=== PATIENT | male | born 1940 | race African-American/Black ===

== ENCOUNTER 2017-05-24 06:59 | Observation (INO) | payer MEDICARE, OTHER ==
[~2017-05-24] VITALS: Ht 182.9 cm; Wt 79.9 kg
[~2017-05-24 06:59] MED LIST: AMLO10TA80 PO; FEBU40TA PO; FERR-63 PO; FOLI-43 PO; LOSA100T14 PO; MULT-1146 PO; SIMV10TA6 PO
[2017-05-24 08:16] LABS: MEAN CORPUSCULAR HEMOGLOBIN 28.4 pg (28.0-32.0); MEAN CORPUSCULAR VOLUME 82.7 fL (80.0-94.0); MEAN PLATELET VOLUME 6.1 fl (7.4-10.4); PLATELET 594 x1000/uL (130-400); RED BLOOD CELL COUNT 2.34 mill/uL (4.7-6.1); RED CELL DISTRIBUTION WIDTH 15.8 % (11.6-14.6)
[2017-05-24 08:18] LABS: HEMATOCRIT. 19.3 % (42.0-52.0); HEMOGLOBIN. 6.6 g/dL (14.0-18.0)
[2017-05-24] MEDS ORDERED: SODIUM CHLORIDE 0.9% 1,000 ML IV SCH ×2 (09:00→10:18)
[2017-05-24 09:07] LABS: PLATELET ESTIMATE INCREASED
[2017-05-24] MEDS ORDERED: MIDAZOLAM HCL 2 MG/2 ML VIAL ONE (09:30)
[2017-05-24] MEDS ORDERED: FENTANYL CITRATE/PF 50MCG/ML 2ML VIAL ONE (09:32)
[2017-05-24] MEDS ORDERED: PROPOFOL 200MG/20ML VIAL IV ONE (09:34)
[2017-05-24] MEDS ORDERED: ONDANSETRON HCL 4MG/2ML VIAL IV PRN ×2 (10:30→13:45)
[2017-05-24] MEDS ORDERED: CLONIDINE 0.1MG TABLET PO PRN (13:45)
[2017-05-24] MEDS: LOSARTAN POTASSIUM 100 MG TABLET PO SCH (13:45)
[2017-05-24] MEDS ORDERED: IPRATROPIUM/ALBUTEROL 0.5-3(2.5)MG/3ML NEB INH PRN (13:45)
[2017-05-24] MEDS: AMLODIPINE 10MG TABLET PO SCH (13:45)
[2017-05-24] MEDS: FERROUS SULFATE 325MG TABLET PO SCH ×2 (14:20→16:37)
[2017-05-24] MEDS: FOLIC ACID 1MG TABLET PO SCH (14:20)
[2017-05-25 07:04] LABS: T4 FREE 1.09 ng/dL (0.76-1.46)
[2017-05-25 07:34] LABS: HEMATOCRIT. 25.4 % (42.0-52.0); HEMOGLOBIN. 8.6 g/dL (14.0-18.0); MEAN CORPUSCULAR HEMOGLOBIN 28.3 pg (28.0-32.0); MEAN CORPUSCULAR VOLUME 83.9 fL (80.0-94.0); MEAN PLATELET VOLUME 6.8 fl (7.4-10.4); PLATELET 609 x1000/uL (130-400); RED BLOOD CELL COUNT 3.03 mill/uL (4.7-6.1); RED CELL DISTRIBUTION WIDTH 15.5 % (11.6-14.6)
[2017-05-25] MEDS: LOSARTAN POTASSIUM 100 MG TABLET PO SCH (08:53)
[2017-05-25] MEDS: FERROUS SULFATE 325MG TABLET PO SCH (08:53)
[2017-05-25] MEDS: FOLIC ACID 1MG TABLET PO SCH (08:53)
[2017-05-25] MEDS: AMLODIPINE 10MG TABLET PO SCH (08:54)
[2017-05-25 12:08] LABS: PLATELET ESTIMATE INCREASED
[2017-05-25 13:17] VITALS: BP 126/74
[2017-07-09] MEDS ORDERED: ASPI-1160 PO (12:17)
== END 2017-05-25 14:00 | disposition home or self-care (01) ==
LOC: OR 06:59 → INTOOBSV 07:00 → 5WST 07:00
PROVIDERS: ADMIT Internal Medicine; ATTEND Internal Medicine
DX: D64.9 Anemia, unspecified (principal); C79.00 Secondary malignant neoplasm of unspecified kidney and renal pelvis; I12.9 Hypertensive chronic kidney disease with stage 1 through stage 4 chronic kidney disease, or unspecified chronic kidney disease; D47.3 Essential (hemorrhagic) thrombocythemia; N18.9 Chronic kidney disease, unspecified; Z85.46 Personal history of malignant neoplasm of prostate; Z86.73 Personal history of transient ischemic attack (TIA), and cerebral infarction without residual deficits; Z90.5 Acquired absence of kidney
CPT/HCPCS: 36415; 36430; 38221; 80048; 84439; 84443; 85025; 85060; 85097; 86850; 86900; 86901; 86920; 88305; 88311; 88313; G0378; J2250; J3010; J7030; J7040; P9016; J2704

== ENCOUNTER 2017-06-08 13:37 | Observation (INO) | payer MEDICARE, OTHER ==
[~2017-06-08] VITALS: Ht 182.9 cm; Wt 79.4 kg
[2017-06-08 10:00] VITALS: BP 127/78
[2017-06-08 15:43] LABS: MEAN CORPUSCULAR HEMOGLOBIN 28.9 pg (28.0-32.0); MEAN CORPUSCULAR VOLUME 83.8 fL (80.0-94.0); MEAN PLATELET VOLUME 6.6 fl (7.4-10.4); PLATELET 564 x1000/uL (130-400); RED BLOOD CELL COUNT 2.44 mill/uL (4.7-6.1); RED CELL DISTRIBUTION WIDTH 16.5 % (11.6-14.6)
[2017-06-08 15:51] LABS: CARBON DIOXIDE 22 mEq/L (21-32); CHLORIDE 111 mEq/L (98-107)
[2017-06-08 15:52] LABS: HEMATOCRIT. 20.4 % (42.0-52.0)
[2017-06-08 17:04] LABS: ATYPICAL LYMPHOCYTES 1
[2017-06-08 17:05] LABS: PLATELET ESTIMATE INCREASED
[2017-06-08 22:00] VITALS: BP 127/78
[2017-06-09] VITALS: BP 125/77
[2017-06-09] MEDS ORDERED: ACETAMINOPHEN 325MG TABLET PO PRN
[2017-06-09 04:00] VITALS: BP 129/73
[2017-06-09 04:44] VITALS: BP 114/81
[2017-06-09 04:59] VITALS: BP 109/78
[2017-06-09 05:59] VITALS: BP 115/59
[2017-06-09 08:00] VITALS: BP 125/76
[2017-06-09] MEDS ORDERED: PANTOPRAZOLE SODIUM 40 MG/VIAL IV SCH (09:00)
[2017-06-09 10:25] LABS: HEMATOCRIT. 30.1 % (42.0-52.0); MEAN CORPUSCULAR VOLUME 83.7 fL (80.0-94.0); MEAN PLATELET VOLUME 6.3 fl (7.4-10.4); PLATELET 546 x1000/uL (130-400); RED BLOOD CELL COUNT 3.59 mill/uL (4.7-6.1); RED CELL DISTRIBUTION WIDTH 15.8 % (11.6-14.6)
[2017-06-09 10:29] LABS: HEMOGLOBIN. 10.4 g/dL (14.0-18.0)
[2017-06-09 13:45] LABS: PLATELET ESTIMATE INCREASED
== END 2017-06-09 10:50 | disposition left against medical advice (07) ==
LOC: ER 15:35 → INTOOBSV 17:15 → 6EST 17:15 → EDBEDREQ 17:18 → ENRESERV 19:23
PROVIDERS: ADMIT Internal Medicine; ATTEND Internal Medicine
DX: D64.9 Anemia, unspecified (principal)
CPT/HCPCS: 36415; 36430; 80048; 80053; 85025; 86850; 86900; 86901; 86920; 96374; C9113; G0378; J7040; J7050; P9016

== ENCOUNTER 2017-06-27 09:56 | Observation (INO) | payer MEDICARE, OTHER ==
[2017-06-27] VITALS (9 sets, daily range): BP systolic 110–119; BP diastolic 54–81
[~2017-06-27] VITALS: Ht 188 cm; Wt 79.8 kg
[2017-06-27 11:19] LABS: INR 1.1; PROTHROMBIN TIME 11.5 sec
[2017-06-27 11:22] LABS: MEAN CORPUSCULAR HEMOGLOBIN 28.4 pg (28.0-32.0); MEAN CORPUSCULAR VOLUME 85.7 fL (80.0-94.0); MEAN PLATELET VOLUME 6.5 fl (7.4-10.4); PLATELET 529 x1000/uL (130-400); RED BLOOD CELL COUNT 1.93 mill/uL (4.7-6.1)
[2017-06-27 11:26] LABS: HEMATOCRIT. 16.6 % (42.0-52.0); HEMOGLOBIN. 5.5 g/dL (14.0-18.0)
[2017-06-27 11:27] LABS: CARBON DIOXIDE 21 mEq/L (21-32); CHLORIDE 112 mEq/L (98-107)
[2017-06-27 12:02] LABS: CLARITY URINE CLEAR (CLEAR); COLOR URINE YELLOW (YELLOW); GLUCOSE URINE NEGATIVE (NEGATIVE); KETONES URINE NEGATIVE (NEGATIVE); LEUKOCYTE ESTERASE URINE NEGATIVE (NEGATIVE); NITRITE URINE NEGATIVE (NEGATIVE); OCCULT BLOOD URINE NEGATIVE (NEGATIVE); PH URINE 6.5 (4.5-8.0); PROTEIN URINE NEGATIVE (NEGATIVE); SPECIFIC GRAVITY URINE 1.014 (1.005-1.030)
[2017-06-27 14:44] LABS: PLATELET ESTIMATE INCREASED
[2017-06-27] MEDS ORDERED: HYDROCODONE/ACETAMINOPHEN 5/325MG TABLET PO PRN (16:00)
[2017-06-27] MEDS ORDERED: ONDANSETRON HCL 4MG/2ML VIAL IV PRN (16:00)
[2017-06-27] MEDS ORDERED: ACETAMINOPHEN 325MG TABLET PO PRN (16:00)
[2017-06-27] MEDS ORDERED: CLONIDINE 0.1MG TABLET PO PRN (16:00)
[2017-06-27] MEDS ORDERED: IPRATROPIUM/ALBUTEROL 0.5-3(2.5)MG/3ML NEB INH PRN (16:00)
[2017-06-27] MEDS ORDERED: DIATR MEGLU/DIATRIZOATE SOLN 30ML PO NR (19:45)
[2017-06-27] MEDS ORDERED: HYDROXYUREA 500MG CAPSULE PO NR (20:00)
[2017-06-27 20:23] LABS: TOTAL IRON BINDING CAPACITY 250 ug/dL (250-450)
[2017-06-27 23:28] LABS: CREATINE KINASE 69 IU/L (39-308); TROPONIN I < 0.02 ng/mL (0.00-0.04)
[2017-06-28 04:55] VITALS: BP 134/68
[2017-06-28 07:12] LABS: HEMATOCRIT. 22.8 % (42.0-52.0); HEMOGLOBIN. 7.9 g/dL (14.0-18.0); MEAN CORPUSCULAR HEMOGLOBIN 29.6 pg (28.0-32.0); MEAN CORPUSCULAR VOLUME 85.1 fL (80.0-94.0); MEAN PLATELET VOLUME 6.7 fl (7.4-10.4); PLATELET 498 x1000/uL (130-400); RED BLOOD CELL COUNT 2.68 mill/uL (4.7-6.1); RED CELL DISTRIBUTION WIDTH 15.1 % (11.6-14.6)
[2017-06-28 07:30] LABS: CARBON DIOXIDE 19 mEq/L (21-32); CHLORIDE 112 mEq/L (98-107); T4 FREE 1.04 ng/dL (0.76-1.46); TROPONIN I < 0.02 ng/mL (0.00-0.04)
[2017-06-28 07:34] LABS: CREATINE KINASE 65 IU/L (39-308); HDL CHOLESTEROL 21 mg/dL (40-59); LDL CHOLESTEROL 39 mg/dL (5-100)
[2017-06-28 08:00] VITALS: BP 112/69
[2017-06-28] MEDS ORDERED: ASPIRIN 81MG EC TABLET PO SCH (09:00)
[2017-06-28 10:33] LABS: PLATELET ESTIMATE INCREASED
[2017-06-28 12:35] VITALS: BP 118/80
[2017-06-28 13:02] VITALS: BP 105/62
== END 2017-06-28 13:15 | disposition home or self-care (01) ==
LOC: ER 10:47 → INTOOBSV 12:37 → 6WST 12:37 → EDBEDREQ 12:40 → ENRESERV 12:51
PROVIDERS: ADMIT Internal Medicine; ATTEND Internal Medicine
DX: D64.9 Anemia, unspecified (principal); D69.3 Immune thrombocytopenic purpura; D47.1 Chronic myeloproliferative disease; D47.3 Essential (hemorrhagic) thrombocythemia; N18.9 Chronic kidney disease, unspecified; I12.9 Hypertensive chronic kidney disease with stage 1 through stage 4 chronic kidney disease, or unspecified chronic kidney disease; R53.1 Weakness; R06.09 Other forms of dyspnea; D72.829 Elevated white blood cell count, unspecified; E78.00 Pure hypercholesterolemia, unspecified; Z86.73 Personal history of transient ischemic attack (TIA), and cerebral infarction without residual deficits
CPT/HCPCS: 36415; 71250; 74176; 80053; 80061; 81003; 82550; 82728; 83540; 83550; 84439; 84443; 84484; 85025; 85044; 85610; 86850; 86900; 86901; 86920; 87186; 93005; 99285; G0378; J7040; P9016; Q9963; A4315

== ENCOUNTER 2017-07-20 16:51 | Observation (INO) | payer MEDICARE, OTHER ==
[~2017-07-20] VITALS: Ht 182.9 cm; Wt 77.1 kg
[~2017-07-20 16:51] MED LIST changes: +ASPI-1160 PO
[2017-07-20 19:32] LABS: MEAN CORPUSCULAR HEMOGLOBIN 29.6 pg (28.0-32.0); MEAN CORPUSCULAR VOLUME 86.7 fL (80.0-94.0); MEAN PLATELET VOLUME 6.3 fl (7.4-10.4); PLATELET 313 x1000/uL (130-400); RED BLOOD CELL COUNT 1.79 mill/uL (4.7-6.1); RED CELL DISTRIBUTION WIDTH 14.9 % (11.6-14.6)
[2017-07-20 19:33] LABS: CHLORIDE 112 mEq/L (98-107)
[2017-07-20 19:35] LABS: INR 1.1; PARTIAL THROMBOPLASTIN TIME 29.6 sec (23.4-31.0); PROTHROMBIN TIME 11.5 sec (9.4-11.6)
[2017-07-20 19:36] LABS: HEMATOCRIT. 15.5 % (42.0-52.0); HEMOGLOBIN. 5.3 g/dL (14.0-18.0)
[2017-07-20 19:41] LABS: CARBON DIOXIDE 20 mEq/L (21-32)
[2017-07-20 19:44] LABS: TROPONIN I < 0.02 ng/mL (0.00-0.04)
[2017-07-20 20:11] LABS: ATYPICAL LYMPHOCYTES 3; PLATELET ESTIMATE NORMAL
[2017-07-20 22:30] VITALS: BP 121/57
[2017-07-20 22:58] VITALS: BP 121/57
[2017-07-21] VITALS (11 sets, daily range): BP systolic 103–136; BP diastolic 51–73
[2017-07-21 06:26] LABS: HEMATOCRIT. 22.2 % (42.0-52.0); HEMOGLOBIN. 7.5 g/dL (14.0-18.0); MEAN CORPUSCULAR HEMOGLOBIN 29.9 pg (28.0-32.0); MEAN CORPUSCULAR VOLUME 88.5 fL (80.0-94.0); MEAN PLATELET VOLUME 6.4 fl (7.4-10.4); PLATELET 305 x1000/uL (130-400); RED BLOOD CELL COUNT 2.51 mill/uL (4.7-6.1)
[2017-07-21 08:20] LABS: NUCLEATED RED BLOOD CELLS 1 /100 WBC
[2017-07-21 08:21] LABS: PLATELET ESTIMATE NORMAL
[2017-07-21] MEDS ORDERED: FERROUS SULFATE 325MG TABLET PO SCH (09:00)
[2017-07-21] MEDS ORDERED: ASPIRIN 81MG TABLET PO SCH (09:00)
[2017-07-21] MEDS ORDERED: FOLIC ACID 1MG TABLET PO SCH (09:00)
[2017-07-21] MEDS ORDERED: MEDICATION NOT ON FORMULARY EA (Simvastatin 10 MG) PO SCH (09:00)
[2017-07-21] MEDS ORDERED: FEBUXOSTAT PO SCH (09:00)
[2017-07-21] MEDS ORDERED: LOSARTAN POTASSIUM 100 MG TABLET PO SCH (09:00)
[2017-07-21] MEDS ORDERED: AMLODIPINE 10MG TABLET PO SCH (09:00)
[2017-07-21] MEDS ORDERED: ATORVASTATIN CALCIUM 10MG TABLET PO SCH (21:00)
== END 2017-07-21 18:15 | disposition home or self-care (01) ==
LOC: ER 20:15 → INTOOBSV 20:16 → 5WST 20:16 → EDBEDREQ 20:28 → ER 20:30 → ENRESERV 20:48 → ER 21:05
PROVIDERS: ADMIT Internal Medicine; ATTEND Internal Medicine
DX: C94.6 Myelodysplastic disease, not elsewhere classified (principal); I12.9 Hypertensive chronic kidney disease with stage 1 through stage 4 chronic kidney disease, or unspecified chronic kidney disease; N18.9 Chronic kidney disease, unspecified; D64.9 Anemia, unspecified; E78.00 Pure hypercholesterolemia, unspecified; Z86.73 Personal history of transient ischemic attack (TIA), and cerebral infarction without residual deficits
CPT/HCPCS: 36415; 36430; 71010; 80053; 83690; 84484; 85025; 85044; 85610; 85730; 86850; 86900; 86901; 86920; 93005; 99285; G0378; J7040; P9016

== ENCOUNTER 2017-07-25 13:22 | Observation (INO) | payer MEDICARE, OTHER ==
[~2017-07-25] VITALS: Ht 182.9 cm; Wt 78.0 kg
[2017-07-25] VITALS (9 sets, daily range): BP systolic 90–116; BP diastolic 39–60
[2017-07-25 14:55] LABS: MEAN CORPUSCULAR HEMOGLOBIN 29.9 pg (28.0-32.0); MEAN CORPUSCULAR VOLUME 88.8 fL (80.0-94.0); MEAN PLATELET VOLUME 6.5 fl (7.4-10.4); PLATELET 319 x1000/uL (130-400); RED BLOOD CELL COUNT 2.29 mill/uL (4.7-6.1); RED CELL DISTRIBUTION WIDTH 15.1 % (11.6-14.6)
[2017-07-25 15:00] LABS: INR 1.1
[2017-07-25 15:06] LABS: CARBON DIOXIDE 21 mEq/L (21-32); CHLORIDE 110 mEq/L (98-107)
[2017-07-25 15:08] LABS: HEMATOCRIT. 20.3 % (42.0-52.0); HEMOGLOBIN. 6.8 g/dL (14.0-18.0)
[2017-07-25] MEDS ORDERED: ONDANSETRON HCL 4MG/2ML VIAL IV PRN (16:00)
[2017-07-25] MEDS ORDERED: IPRATROPIUM/ALBUTEROL 0.5-3(2.5)MG/3ML NEB INH PRN (16:00)
[2017-07-25] MEDS ORDERED: HYDROCODONE/ACETAMINOPHEN 5/325MG TABLET PO PRN (16:00)
[2017-07-25] MEDS ORDERED: ACETAMINOPHEN 325MG TABLET PO PRN (16:00)
[2017-07-25] MEDS ORDERED: CLONIDINE 0.1MG TABLET PO PRN (16:00)
[2017-07-25 17:08] LABS: NUCLEATED RED BLOOD CELLS 1 /100 WBC; PLATELET ESTIMATE NORMAL
[2017-07-25] MEDS ORDERED: HYDROXYUREA PO (18:52)
[2017-07-25] MEDS ORDERED: ATORVASTATIN CALCIUM 10MG TABLET PO SCH (21:00)
[2017-07-25 22:01] LABS: CREATINE KINASE 57 IU/L (39-308); TROPONIN I < 0.02 ng/mL (0.00-0.04)
[2017-07-26 00:10] VITALS: BP 101/62
[2017-07-26 01:04] VITALS: BP 106/63
[2017-07-26 04:00] VITALS: BP 100/50
[2017-07-26 06:46] LABS: HEMATOCRIT. 23.2 % (42.0-52.0); HEMOGLOBIN. 7.9 g/dL (14.0-18.0); MEAN CORPUSCULAR HEMOGLOBIN 29.5 pg (28.0-32.0); MEAN CORPUSCULAR VOLUME 86.9 fL (80.0-94.0); MEAN PLATELET VOLUME 6.7 fl (7.4-10.4); PLATELET 271 x1000/uL (130-400); RED BLOOD CELL COUNT 2.67 mill/uL (4.7-6.1); RED CELL DISTRIBUTION WIDTH 14.7 % (11.6-14.6)
[2017-07-26 07:02] LABS: LDL CHOLESTEROL 29 mg/dL (5-100)
[2017-07-26 07:11] LABS: CREATINE KINASE 49 IU/L (39-308); HDL CHOLESTEROL 25 mg/dL (40-59); T4 FREE 1.15 ng/dL (0.76-1.46); TROPONIN I < 0.02 ng/mL (0.00-0.04)
[2017-07-26 08:00] VITALS: BP 93/42
[2017-07-26] MEDS ORDERED: FERROUS SULFATE 325MG TABLET PO SCH (08:10)
[2017-07-26] MEDS ORDERED: LOSARTAN POTASSIUM 100 MG TABLET PO SCH (09:00)
[2017-07-26] MEDS ORDERED: AMLODIPINE 10MG TABLET PO SCH (09:00)
[2017-07-26] MEDS ORDERED: FEBUXOSTAT PO SCH (09:00)
[2017-07-26] MEDS ORDERED: HYDROXYUREA 500MG CAPSULE PO SCH (09:00)
[2017-07-26] MEDS ORDERED: ASPIRIN 81MG TABLET PO SCH (09:00)
[2017-07-26] MEDS ORDERED: FOLIC ACID 1MG TABLET PO SCH (09:00)
[2017-07-26] MEDS ORDERED: MEDICATION NOT ON FORMULARY EA (Multivitamin (Multi Vitamin Daily) 1 TAB) PO SCH (09:00)
[2017-07-26] MEDS ORDERED: MULTIVITAMINS,THER W-MINERALS TABLET PO SCH (09:00)
[2017-07-26] MEDS ORDERED: MEDICATION NOT ON FORMULARY EA (Simvastatin 10 MG) PO SCH (09:00)
[2017-07-26] MEDS ORDERED: HYDROXYUREA 500 MG PO SCH (09:00)
[2017-07-26 11:04] VITALS: BP 101/60
[2017-07-26 12:00] VITALS: BP 116/64
[2017-07-26 15:58] LABS: PLATELET ESTIMATE NORMAL
== END 2017-07-26 11:50 | disposition home health service (06) ==
LOC: ER 14:52 → 7WST 16:03 → INTOOBSV 16:03 → EDBEDREQ 16:04 → EDBEDREQTM 16:04 → ENRESERV 17:09
PROVIDERS: ADMIT Internal Medicine; ATTEND Internal Medicine
DX: D64.9 Anemia, unspecified (principal); D47.1 Chronic myeloproliferative disease; D47.3 Essential (hemorrhagic) thrombocythemia; I12.0 Hypertensive chronic kidney disease with stage 5 chronic kidney disease or end stage renal disease; N18.6 End stage renal disease; D57.1 Sickle-cell disease without crisis; E78.00 Pure hypercholesterolemia, unspecified; Z86.73 Personal history of transient ischemic attack (TIA), and cerebral infarction without residual deficits
CPT/HCPCS: 36415; 36430; 71010; 80048; 80053; 80061; 82550; 84439; 84443; 84484; 85025; 85610; 85660; 86850; 86900; 86901; 86920; 93005; 96374; 99285; G0378; J2405; J7050; P9016

== ENCOUNTER 2017-08-03 19:54 | Inpatient (IN) | payer MEDICARE, OTHER ==
[~2017-08-03] VITALS: Ht 182.9 cm; Wt 79.4 kg
[~2017-08-03 19:54] MED LIST changes: +HYDROXYUREA PO
[2017-08-03 21:44] LABS: INR 1.1; PARTIAL THROMBOPLASTIN TIME 28.5 sec (23.4-31.0); PROTHROMBIN TIME 11.5 sec (9.4-11.6)
[2017-08-03 21:48] LABS: MEAN CORPUSCULAR HEMOGLOBIN 29.3 pg (28.0-32.0); MEAN PLATELET VOLUME 6.5 fl (7.4-10.4); PLATELET 320 x1000/uL (130-400); RED BLOOD CELL COUNT 2.13 mill/uL (4.7-6.1); RED CELL DISTRIBUTION WIDTH 14.4 % (11.6-14.6)
[2017-08-03 21:52] LABS: HEMATOCRIT. 18.5 % (42.0-52.0); HEMOGLOBIN. 6.2 g/dL (14.0-18.0)
[2017-08-03] MEDS ORDERED: SODIUM CHLORIDE 0.9% 1000ML BAG (SEPSIS BOLUS) IV ONE (22:15)
[2017-08-03] MEDS ORDERED: LEVOFLOXACIN 750MG PREMIX 150 ML IV ONE (22:15)
[2017-08-03 22:56] LABS: ATYPICAL LYMPHOCYTES 1; PLATELET ESTIMATE NORMAL
[2017-08-03 23:03] LABS: CLARITY URINE CLEAR (CLEAR); COLOR URINE YELLOW (YELLOW); GLUCOSE URINE NEGATIVE (NEGATIVE); KETONES URINE NEGATIVE (NEGATIVE); LEUKOCYTE ESTERASE URINE NEGATIVE (NEGATIVE); NITRITE URINE NEGATIVE (NEGATIVE); OCCULT BLOOD URINE NEGATIVE (NEGATIVE); PH URINE 5.5 (4.5-8.0); PROTEIN URINE NEGATIVE (NEGATIVE); SPECIFIC GRAVITY URINE 1.014 (1.005-1.030); UROBILINOGEN URINE 0.2 E.U./dL (0.2-1.0)
[2017-08-04] VITALS (15 sets, daily range): BP systolic 110–132; BP diastolic 50–66
[2017-08-04] MEDS ORDERED: ACETAMINOPHEN 325MG TABLET PO PRN (01:30)
[2017-08-04] MEDS ORDERED: FERROUS SULFATE 325MG TABLET PO SCH (07:15)
[2017-08-04] MEDS ORDERED: HYDROXYUREA 500MG CAPSULE PO SCH (09:00)
[2017-08-04] MEDS ORDERED: MEDICATION NOT ON FORMULARY EA (Multivitamin (Multi Vitamin Daily) 1 EACH) PO SCH (09:00)
[2017-08-04] MEDS ORDERED: HYDROXYUREA 500 MG PO SCH (09:00)
[2017-08-04] MEDS ORDERED: FEBUXOSTAT 40 MG PO SCH (09:00)
[2017-08-04] MEDS ORDERED: ASPIRIN 81MG TABLET PO SCH (09:00)
[2017-08-04] MEDS ORDERED: LOSARTAN POTASSIUM 100 MG TABLET PO SCH (09:00)
[2017-08-04] MEDS ORDERED: MULTIVITAMINS,THER W-MINERALS TABLET PO SCH (09:00)
[2017-08-04] MEDS ORDERED: FOLIC ACID 1MG TABLET PO SCH (09:00)
[2017-08-04] MEDS ORDERED: AMLODIPINE 10MG TABLET PO SCH (09:00)
[2017-08-04 09:45] LABS: HEMOGLOBIN. 8.5 g/dL (14.0-18.0); MEAN CORPUSCULAR HEMOGLOBIN 29.5 pg (28.0-32.0); MEAN CORPUSCULAR VOLUME 86.6 fL (80.0-94.0); MEAN PLATELET VOLUME 6.5 fl (7.4-10.4); PLATELET 289 x1000/uL (130-400); RED BLOOD CELL COUNT 2.89 mill/uL (4.7-6.1); RED CELL DISTRIBUTION WIDTH 14.3 % (11.6-14.6)
[2017-08-04 13:21] LABS: PLATELET ESTIMATE NORMAL
[2017-08-04] MEDS ORDERED: ATORVASTATIN CALCIUM 10MG TABLET PO SCH (21:00)
[2017-08-04] MEDS ORDERED: MEDICATION NOT ON FORMULARY EA (Simvastatin 10 MG) PO SCH (21:00)
== END 2017-08-04 17:35 | disposition home health service (06) | DRG 842 ==
LOC: ER 19:54 → EDBEDREQSVC 22:17 → EDBEDREQ 22:17 → 5WST 23:03 → EDBEDREQ 23:06 → EDBEDREQTM 23:06 → ENRESERV 23:29
PROVIDERS: ADMIT Internal Medicine; ATTEND Internal Medicine
PROC: 30233N1 Transfusion of Nonautologous Red Blood Cells into Peripheral Vein, Percutaneous Approach (ICD-10-PCS; principal; 2017-08-03)
DX: C94.6 Myelodysplastic disease, not elsewhere classified (principal); D64.9 Anemia, unspecified; I12.9 Hypertensive chronic kidney disease with stage 1 through stage 4 chronic kidney disease, or unspecified chronic kidney disease; N18.9 Chronic kidney disease, unspecified; M10.9 Gout, unspecified; Z79.82 Long term (current) use of aspirin; Z79.899 Other long term (current) drug therapy
CPT/HCPCS: 36415; 71010; 80048; 81003; 83605; 85025; 85610; 85730; 86850; 86900; 86920; 87040; 87086; 93005; 96365; 99285; J1956; J7030; J7040; P9016

== ENCOUNTER 2017-08-17 17:37 | Observation (INO) | payer MEDICARE, OTHER ==
[~2017-08-17] VITALS: Ht 182.9 cm; Wt 78.5 kg
[2017-08-17] MEDS ORDERED: SODIUM CHLORIDE 0.9% 1,000 ML IV ONE (18:34)
[2017-08-17 19:03] LABS: MEAN CORPUSCULAR HEMOGLOBIN 29.1 pg (28.0-32.0); MEAN CORPUSCULAR VOLUME 86.8 fL (80.0-94.0); MEAN PLATELET VOLUME 6.2 fl (7.4-10.4); PLATELET 290 x1000/uL (130-400); RED BLOOD CELL COUNT 2.05 mill/uL (4.7-6.1); RED CELL DISTRIBUTION WIDTH 14.3 % (11.6-14.6)
[2017-08-17 19:05] LABS: CHLORIDE 112 mEq/L (98-107)
[2017-08-17 19:09] LABS: HEMATOCRIT. 17.8 % (42.0-52.0); INR 1.1; PROTHROMBIN TIME 11.4 sec (9.4-11.6)
[2017-08-17 19:11] LABS: CARBON DIOXIDE 22 mEq/L (21-32)
[2017-08-17 19:32] LABS: PLATELET ESTIMATE NORMAL
[2017-08-17] MEDS ORDERED: SODIUM CHLORIDE 0.9% 1,000 ML IV SCH (19:48)
[2017-08-17] MEDS ORDERED: ACETAMINOPHEN 325MG TABLET PO PRN (20:00)
[2017-08-17] MEDS ORDERED: IBUPROFEN 600MG TABLET PO PRN (20:00)
[2017-08-17 22:50] VITALS: BP 128/65
[2017-08-18] VITALS (7 sets, daily range): BP systolic 106–133; BP diastolic 53–65
[2017-08-18] MEDS ORDERED: ACETAMINOPHEN 325MG TABLET PO PRN (07:30)
[2017-08-18] MEDS ORDERED: HYDROCODONE/ACETAMINOPHEN 5/325MG TABLET PO PRN (07:30)
[2017-08-18] MEDS ORDERED: ONDANSETRON HCL 4MG/2ML VIAL IV PRN (07:30)
[2017-08-18] MEDS ORDERED: FERROUS SULFATE 325MG TABLET PO SCH (07:50)
[2017-08-18] MEDS ORDERED: AMLODIPINE 10MG TABLET PO SCH (09:00)
[2017-08-18] MEDS ORDERED: LOSARTAN POTASSIUM 100 MG TABLET PO SCH (09:00)
[2017-08-18] MEDS ORDERED: FOLIC ACID 1MG TABLET PO SCH (09:00)
[2017-08-18 09:09] LABS: HEMATOCRIT. 25.6 % (42.0-52.0); HEMOGLOBIN. 8.5 g/dL (14.0-18.0); MEAN CORPUSCULAR HEMOGLOBIN 29.1 pg (28.0-32.0); MEAN CORPUSCULAR VOLUME 87.6 fL (80.0-94.0); MEAN PLATELET VOLUME 6.4 fl (7.4-10.4); PLATELET 261 x1000/uL (130-400); RED BLOOD CELL COUNT 2.92 mill/uL (4.7-6.1); RED CELL DISTRIBUTION WIDTH 15.9 % (11.6-14.6)
[2017-08-18 22:28] LABS: PLATELET ESTIMATE NORMAL
== END 2017-08-18 13:30 | disposition home health service (06) ==
LOC: ER 17:37 → INTOOBSV 19:49 → 6EST 19:49 → ENRESERV 20:26 → ER 21:19
PROVIDERS: ADMIT Internal Medicine; ATTEND Internal Medicine
DX: D46.9 Myelodysplastic syndrome, unspecified (principal); D64.9 Anemia, unspecified; I10 Essential (primary) hypertension; E78.5 Hyperlipidemia, unspecified
CPT/HCPCS: 36415; 36430; 80053; 85025; 85610; 86850; 86900; 86901; 86920; 93005; 96360; 96361; 99285; G0378; J7030; J7040; P9016

== ENCOUNTER 2017-08-28 18:29 | Observation (INO) | payer MEDICARE, OTHER ==
[~2017-08-28] VITALS: Ht 182.9 cm; Wt 77.1 kg
[2017-08-28 19:40] LABS: MEAN CORPUSCULAR HEMOGLOBIN 29.5 pg (28.0-32.0); MEAN CORPUSCULAR VOLUME 86.8 fL (80.0-94.0); MEAN PLATELET VOLUME 6.7 fl (7.4-10.4); PLATELET 353 x1000/uL (130-400); RED BLOOD CELL COUNT 2.29 mill/uL (4.7-6.1); RED CELL DISTRIBUTION WIDTH 15.7 % (11.6-14.6)
[2017-08-28 19:42] LABS: CHLORIDE 109 mEq/L (98-107); INR 1.1; PARTIAL THROMBOPLASTIN TIME 27.3 sec (23.4-31.0); PROTHROMBIN TIME 11.4 sec (9.4-11.6)
[2017-08-28 19:47] LABS: HEMATOCRIT. 19.9 % (42.0-52.0); HEMOGLOBIN. 6.8 g/dL (14.0-18.0)
[2017-08-28 19:50] LABS: CARBON DIOXIDE 24 mEq/L (21-32); CREATINE KINASE 71 IU/L (39-308); CREATINE KINASE MB FRACTION 0.9 ng/mL (0.5-3.6); TOTAL IRON BINDING CAPACITY 241 ug/dL (250-450); TROPONIN I < 0.02 ng/mL (0.00-0.04)
[2017-08-28 20:22] LABS: PLATELET ESTIMATE NORMAL
[2017-08-28 22:57] LABS: CLARITY URINE CLEAR (CLEAR); COLOR URINE YELLOW (YELLOW); GLUCOSE URINE NEGATIVE (NEGATIVE); KETONES URINE NEGATIVE (NEGATIVE); LEUKOCYTE ESTERASE URINE NEGATIVE (NEGATIVE); NITRITE URINE NEGATIVE (NEGATIVE); OCCULT BLOOD URINE NEGATIVE (NEGATIVE); PH URINE 7.5 (4.5-8.0); PROTEIN URINE 1+ (NEGATIVE); SPECIFIC GRAVITY URINE 1.019 (1.005-1.030); UROBILINOGEN URINE 0.2 E.U./dL (0.2-1.0)
[2017-08-28 23:40] VITALS: BP 124/63
[2017-08-29] VITALS (15 sets, daily range): BP systolic 105–146; BP diastolic 49–68
[2017-08-29] MEDS ORDERED: ACETAMINOPHEN 325MG TABLET PO PRN (00:15)
[2017-08-29] MEDS ORDERED: ONDANSETRON HCL 4MG/2ML VIAL IV PRN (00:15)
[2017-08-29 08:25] LABS: HEMOGLOBIN. 7.2 g/dL (14.0-18.0); MEAN CORPUSCULAR HEMOGLOBIN 29.5 pg (28.0-32.0); MEAN CORPUSCULAR VOLUME 85.9 fL (80.0-94.0); MEAN PLATELET VOLUME 6.6 fl (7.4-10.4); PLATELET 305 x1000/uL (130-400); RED BLOOD CELL COUNT 2.45 mill/uL (4.7-6.1); RED CELL DISTRIBUTION WIDTH 15.4 % (11.6-14.6)
[2017-08-29] MEDS ORDERED: ASPIRIN 81MG TABLET PO SCH (09:00)
[2017-08-29] MEDS ORDERED: FOLIC ACID 1MG TABLET PO SCH (09:00)
[2017-08-29] MEDS ORDERED: HYDROXYUREA 500MG CAPSULE PO SCH (09:00)
[2017-08-29] MEDS ORDERED: LOSARTAN POTASSIUM 100 MG TABLET PO SCH (09:00)
[2017-08-29] MEDS ORDERED: AMLODIPINE 10MG TABLET PO SCH (09:00)
[2017-08-29] MEDS ORDERED: FERROUS SULFATE 325MG TABLET PO SCH (09:00)
[2017-08-29 14:12] LABS: HEMATOCRIT 25.3 % (42.0-52.0); HEMOGLOBIN 8.4 g/dL (14.0-18.0)
[2017-08-29 20:47] LABS: PLATELET ESTIMATE NORMAL
== END 2017-08-29 16:40 | disposition home health service (06) ==
LOC: ER 19:58 → 8WST 20:04 → INTOOBSV 20:04 → EDBEDREQ 20:12 → ENRESERV 21:46
PROVIDERS: ADMIT Internal Medicine; ATTEND Internal Medicine
DX: D46.9 Myelodysplastic syndrome, unspecified (principal); D72.829 Elevated white blood cell count, unspecified; I12.9 Hypertensive chronic kidney disease with stage 1 through stage 4 chronic kidney disease, or unspecified chronic kidney disease; N18.9 Chronic kidney disease, unspecified; J44.9 Chronic obstructive pulmonary disease, unspecified; E78.00 Pure hypercholesterolemia, unspecified; E78.5 Hyperlipidemia, unspecified; Z87.891 Personal history of nicotine dependence
CPT/HCPCS: 36415; 36430; 71010; 80048; 80053; 81001; 82550; 82553; 82962; 83540; 83550; 83690; 83880; 84443; 84484; 85014; 85018; 85025; 85044; 85610; 85730; 86850; 86900; 86901; 86920; 93005; 99285; G0378; J7050; P9016

== ENCOUNTER 2017-09-13 09:43 | Observation (INO) | payer MEDICARE, OTHER ==
[~2017-09-13] VITALS: Ht 182.9 cm; Wt 78.9 kg
[2017-09-13 10:36] LABS: CARBON DIOXIDE 22 mEq/L (21-32); CHLORIDE 109 mEq/L (98-107)
[2017-09-13 10:37] LABS: MEAN CORPUSCULAR HEMOGLOBIN 29.5 pg (28.0-32.0); MEAN CORPUSCULAR VOLUME 86.9 fL (80.0-94.0); MEAN PLATELET VOLUME 6.6 fl (7.4-10.4); PLATELET 364 x1000/uL (130-400); RED BLOOD CELL COUNT 2.14 mill/uL (4.7-6.1); RED CELL DISTRIBUTION WIDTH 15.3 % (11.6-14.6)
[2017-09-13 10:39] LABS: INR 1.1; PROTHROMBIN TIME 11.1 sec (9.4-11.6)
[2017-09-13 10:42] LABS: TROPONIN I < 0.02 ng/mL (0.00-0.04)
[2017-09-13 10:45] LABS: HEMOGLOBIN. 6.3 g/dL (14.0-18.0)
[2017-09-13] MEDS ORDERED: PANTOPRAZOLE 80 MG in SODIUM CHLORIDE 0.9% 100 ML IV SCH (10:45)
[2017-09-13] MEDS ORDERED: PANTOPRAZOLE SODIUM 40 MG/VIAL IV ONE (10:45)
[2017-09-13 10:46] LABS: HEMATOCRIT. 18.6 % (42.0-52.0)
[2017-09-13 11:26] LABS: PLATELET ESTIMATE NORMAL
[2017-09-13] MEDS ORDERED: PANTOPRAZOLE 80 MG in SODIUM CHLORIDE 0.9% 80 ML IV SCH (11:45)
[2017-09-13] MEDS ORDERED: PANTOPRAZOLE SODIUM 40 MG/VIAL IV SCH (11:45)
[2017-09-13 17:42] VITALS: BP 109/55
[2017-09-13 17:43] VITALS: BP 114/56
[2017-09-13 18:00] VITALS: BP 115/56
[2017-09-13 18:15] VITALS: BP 116/48
[2017-09-13] MEDS: HYDROXYUREA 500MG CAPSULE PO SCH (18:42)
[2017-09-13] MEDS: FERROUS SULFATE 325MG TABLET PO SCH (18:43)
[2017-09-13] MEDS: FOLIC ACID 1MG TABLET PO SCH (18:43)
[2017-09-13 19:18] VITALS: BP 108/54
[2017-09-13] MEDS ORDERED: HYDROCODONE/ACETAMINOPHEN 5/325MG TABLET PO PRN (20:00)
[2017-09-13 20:18] VITALS: BP 98/42
[2017-09-13] MEDS ORDERED: ATORVASTATIN CALCIUM 10MG TABLET PO SCH (21:00)
[2017-09-14] VITALS: BP 102/59
[2017-09-14 08:00] VITALS: BP 114/59
[2017-09-14] MEDS ORDERED: AMLODIPINE 10MG TABLET PO SCH (09:00)
[2017-09-14] MEDS ORDERED: FEBUXOSTAT 40 MG PO SCH (09:00)
[2017-09-14] MEDS ORDERED: LOSARTAN POTASSIUM 100 MG TABLET PO SCH (09:00)
[2017-09-14] MEDS: FOLIC ACID 1MG TABLET PO SCH (10:01)
[2017-09-14] MEDS: FERROUS SULFATE 325MG TABLET PO SCH (10:01)
[2017-09-14] MEDS: HYDROXYUREA 500MG CAPSULE PO SCH (10:03)
[2017-09-14 10:53] LABS: HEMATOCRIT. 24.2 % (42.0-52.0); HEMOGLOBIN. 8.4 g/dL (14.0-18.0); MEAN CORPUSCULAR HEMOGLOBIN 29.9 pg (28.0-32.0); MEAN CORPUSCULAR VOLUME 86.4 fL (80.0-94.0); MEAN PLATELET VOLUME 6.5 fl (7.4-10.4); PLATELET 282 x1000/uL (130-400); RED BLOOD CELL COUNT 2.81 mill/uL (4.7-6.1); RED CELL DISTRIBUTION WIDTH 14.6 % (11.6-14.6)
[2017-09-14 12:00] VITALS: BP 111/68
[2017-09-14 12:29] VITALS: BP 114/59
[2017-09-15 06:03] LABS: PLATELET ESTIMATE NORMAL
== END 2017-09-14 12:54 | disposition home or self-care (01) ==
LOC: ER 13:27 → 8WST 13:50 → INTOOBSV 13:50 → EDBEDREQTM 13:53 → EDBEDREQ 13:53 → ENRESERV 14:13
PROVIDERS: ADMIT Internal Medicine; ATTEND Internal Medicine
DX: D64.9 Anemia, unspecified (principal); D72.829 Elevated white blood cell count, unspecified; D46.9 Myelodysplastic syndrome, unspecified; I12.9 Hypertensive chronic kidney disease with stage 1 through stage 4 chronic kidney disease, or unspecified chronic kidney disease; N18.9 Chronic kidney disease, unspecified; E78.00 Pure hypercholesterolemia, unspecified; K92.2 Gastrointestinal hemorrhage, unspecified; M10.9 Gout, unspecified; N32.3 Diverticulum of bladder; N40.0 Benign prostatic hyperplasia without lower urinary tract symptoms
CPT/HCPCS: 36415; 36430; 74176; 80048; 80053; 83880; 84484; 85025; 85610; 86850; 86900; 86901; 86920; 93005; 96365; 96366; 96375; 99291; C9113; G0378; J7030; J7050; P9016; 96374

== ENCOUNTER 2017-09-23 10:20 | Inpatient (IN) | payer MEDICARE, OTHER ==
[2017-09-23] VITALS (8 sets, daily range): BP systolic 102–118; BP diastolic 51–70
[~2017-09-23] VITALS: Ht 182.9 cm; Wt 77.1 kg
[2017-09-23 12:27] LABS: MEAN CORPUSCULAR HEMOGLOBIN 29.5 pg (28.0-32.0); MEAN CORPUSCULAR VOLUME 86.4 fL (80.0-94.0); PLATELET 295 x1000/uL (130-400); RED BLOOD CELL COUNT 2.29 mill/uL (4.7-6.1)
[2017-09-23 12:36] LABS: HEMOGLOBIN. 6.8 g/dL (14.0-18.0)
[2017-09-23 12:37] LABS: HEMATOCRIT. 19.8 % (42.0-52.0); INR 1.1; PARTIAL THROMBOPLASTIN TIME 29.2 sec (23.4-31.0); PROTHROMBIN TIME 11.6 sec (9.4-11.6)
[2017-09-23 12:47] LABS: CARBON DIOXIDE 23 mEq/L (21-32); CHLORIDE 110 mEq/L (98-107)
[2017-09-23 13:37] LABS: PLATELET ESTIMATE NORMAL
[2017-09-23] MEDS ORDERED: ACETAMINOPHEN 325MG TABLET PO PRN (19:45)
[2017-09-23 21:02] LABS: MEAN CORPUSCULAR VOLUME 86.4 fL (80.0-94.0); MEAN PLATELET VOLUME 6.3 fl (7.4-10.4); PLATELET 279 x1000/uL (130-400); RED BLOOD CELL COUNT 2.41 mill/uL (4.7-6.1); RED CELL DISTRIBUTION WIDTH 14.8 % (11.6-14.6)
[2017-09-23 21:26] LABS: HEMATOCRIT. 20.9 % (42.0-52.0)
[2017-09-23 22:00] LABS: PLATELET ESTIMATE NORMAL
[2017-09-23] MEDS ORDERED: HYDROCODONE/ACETAMINOPHEN 5/325MG TABLET PO PRN (23:00)
[2017-09-24 00:25] VITALS: BP 137/74
[2017-09-24] MEDS ORDERED: EPOETIN ALFA 10000UNITS/ML VIAL SUBCUT NR (02:00)
[2017-09-24 04:00] VITALS: BP 121/58
[2017-09-24] MEDS ORDERED: PANTOPRAZOLE 40MG DR TABLET PO SCH (07:10)
[2017-09-24 08:00] VITALS: BP 121/54
[2017-09-24 08:49] LABS: HEMATOCRIT. 24.1 % (42.0-52.0); MEAN CORPUSCULAR HEMOGLOBIN 29.9 pg (28.0-32.0); MEAN CORPUSCULAR VOLUME 88.3 fL (80.0-94.0); MEAN PLATELET VOLUME 6.2 fl (7.4-10.4); PLATELET 246 x1000/uL (130-400); RED BLOOD CELL COUNT 2.73 mill/uL (4.7-6.1); RED CELL DISTRIBUTION WIDTH 14.9 % (11.6-14.6)
[2017-09-24 08:52] LABS: HEMOGLOBIN. 8.2 g/dL (14.0-18.0)
[2017-09-24] MEDS ORDERED: HYDRALAZINE HCL 50MG TABLET PO SCH (09:00)
[2017-09-24 10:29] VITALS: BP 121/54
[2017-09-24 18:12] LABS: PLATELET ESTIMATE NORMAL
== END 2017-09-24 10:58 | disposition home health service (06) | DRG 812 ==
LOC: ER 10:54 → 8WST 14:29 → EDBEDREQ 14:31 → CANRESERV 14:43 → ENRESERV 14:43
PROVIDERS: ADMIT Ophthalmology; ATTEND Ophthalmology
PROC: 30233N1 Transfusion of Nonautologous Red Blood Cells into Peripheral Vein, Percutaneous Approach (ICD-10-PCS; principal; 2017-09-23)
DX: D46.9 Myelodysplastic syndrome, unspecified (principal); E78.00 Pure hypercholesterolemia, unspecified; I10 Essential (primary) hypertension; M10.9 Gout, unspecified; E78.5 Hyperlipidemia, unspecified; Z79.82 Long term (current) use of aspirin; Z79.899 Other long term (current) drug therapy; Z90.5 Acquired absence of kidney
CPT/HCPCS: 36415; 71010; 80048; 80053; 85025; 85610; 85730; 86850; 86900; 86920; 93005; 99285; J0885; J7040; J7050; P9016

== ENCOUNTER 2017-10-05 16:07 | Observation (INO) | payer MEDICARE, OTHER ==
[~2017-10-05] VITALS: Ht 182.9 cm; Wt 72.6 kg
[2017-10-05] MEDS ORDERED: SODIUM CHLORIDE 0.9% 500 ML IV ONE (17:30)
[2017-10-05 17:48] LABS: MEAN CORPUSCULAR HEMOGLOBIN 31.2 pg (28.0-32.0); MEAN CORPUSCULAR VOLUME 89.7 fL (80.0-94.0); MEAN PLATELET VOLUME 6.7 fl (7.4-10.4); PLATELET 324 x1000/uL (130-400); RED BLOOD CELL COUNT 2.04 mill/uL (4.7-6.1); RED CELL DISTRIBUTION WIDTH 15.3 % (11.6-14.6)
[2017-10-05 17:52] LABS: INR 1.1; PROTHROMBIN TIME 11.6 sec (9.4-11.6)
[2017-10-05 17:55] LABS: HEMOGLOBIN. 6.4 g/dL (14.0-18.0)
[2017-10-05 17:56] LABS: HEMATOCRIT. 18.3 % (42.0-52.0)
[2017-10-05 18:04] LABS: CARBON DIOXIDE 22 mEq/L (21-32); CHLORIDE 111 mEq/L (98-107); TOTAL IRON BINDING CAPACITY 218 ug/dL (250-450); TROPONIN I < 0.02 ng/mL (0.00-0.04)
[2017-10-05 18:17] LABS: PLATELET ESTIMATE NORMAL
[2017-10-05 18:44] LABS: FERRITIN 1254 ng/mL (22-322)
[2017-10-05 18:54] LABS: CLARITY URINE CLEAR (CLEAR); COLOR URINE YELLOW (YELLOW); GLUCOSE URINE NEGATIVE (NEGATIVE); KETONES URINE NEGATIVE (NEGATIVE); LEUKOCYTE ESTERASE URINE NEGATIVE (NEGATIVE); NITRITE URINE NEGATIVE (NEGATIVE); OCCULT BLOOD URINE NEGATIVE (NEGATIVE); PROTEIN URINE NEGATIVE (NEGATIVE); SPECIFIC GRAVITY URINE 1.015 (1.005-1.030); UROBILINOGEN URINE 0.2 E.U./dL (0.2-1.0)
[2017-10-05 18:54] LABS: HEPATITIS B SURFACE ANTIGEN REACTIVE PEND CONFIR
[2017-10-05 19:04] LABS: HEPATITIS B CORE AB IGM NEGATIVE
[2017-10-05 19:05] LABS: HEPATITIS A AB IGM NEGATIVE (NEGATIVE)
[2017-10-05 19:20] LABS: *AMPHETAMINES SCREEN URINE NEGATIVE (NEGATIVE); *BARBITURATES SCREEN URINE NEGATIVE (NEGATIVE); *BENZODIAZEPINES SCREEN URINE NEGATIVE (NEGATIVE); *COCAINE SCREEN URINE NEGATIVE (NEGATIVE); CANNABINOID URINE SCREEN NEGATIVE (NEGATIVE); METHADONE URINE SCREEN NEGATIVE (NEGATIVE); OPIATES URINE SCREEN PRESUMTIVE POSITIVE (NEGATIVE); PHENCYCLIDINE URINE SCREEN NEGATIVE (NEGATIVE)
[2017-10-06] VITALS (16 sets, daily range): BP systolic 60–131; BP diastolic 30–65
[2017-10-06] MEDS ORDERED: ACETAMINOPHEN 325MG TABLET PO PRN (00:45)
[2017-10-06 05:00] LABS: MEAN CORPUSCULAR HEMOGLOBIN 29.8 pg (28.0-32.0); MEAN CORPUSCULAR VOLUME 87.2 fL (80.0-94.0); PLATELET 261 x1000/uL (130-400)
[2017-10-06 05:11] LABS: HEMATOCRIT 19.2 % (42.0-52.0); HEMOGLOBIN 6.6 g/dL (14.0-18.0)
[2017-10-06] MEDS ORDERED: TEMAZEPAM 15MG CAPSULE PO PRN (05:25)
[2017-10-06] MEDS ORDERED: SODIUM CHLORIDE 0.9% INJ 3ML FLUSH IVF SCH (06:00)
[2017-10-06] MEDS ORDERED: FAMOTIDINE 20MG TABLET PO SCH (09:00)
[2017-10-06] MEDS ORDERED: AMLODIPINE 10MG TABLET PO SCH (09:00)
[2017-10-06] MEDS ORDERED: LOSARTAN POTASSIUM 100 MG TABLET PO SCH (09:00)
[2017-10-06] MEDS: FOLIC ACID 1MG TABLET PO SCH ×2 (09:18→16:05)
[2017-10-06 13:36] LABS: HEMATOCRIT 24.4 % (42.0-52.0); HEMOGLOBIN 8.4 g/dL (14.0-18.0)
[2017-10-06] MEDS ORDERED: EPOETIN ALFA 10000UNITS/ML VIAL SUBCUT NR (17:30)
[2017-10-06 19:02] LABS: HEMATOCRIT. 26.5 % (42.0-52.0); HEMOGLOBIN. 9.3 g/dL (14.0-18.0); MEAN CORPUSCULAR HEMOGLOBIN 30.4 pg (28.0-32.0); MEAN CORPUSCULAR VOLUME 87.1 fL (80.0-94.0); MEAN PLATELET VOLUME 6.4 fl (7.4-10.4); PLATELET 271 x1000/uL (130-400); RED BLOOD CELL COUNT 3.04 mill/uL (4.7-6.1); RED CELL DISTRIBUTION WIDTH 15.4 % (11.6-14.6)
[2017-10-06 19:57] LABS: NUCLEATED RED BLOOD CELLS 1 /100 WBC
[2017-10-06 20:10] LABS: PLATELET ESTIMATE NORMAL
[2017-10-11 09:06] LABS: HBSAG SCREEN Confirm. indicated (Negative)
[2017-10-11 14:23] LABS: HBSAG CONFIRMATION Positive (.)
== END 2017-10-06 20:30 | disposition home or self-care (01) ==
LOC: ER 16:43 → INTOOBSV 10-06 00:33 → 6WST 10-06 00:33 → EDBEDREQ 10-06 00:42 → ENRESERV 10-06 04:26
PROVIDERS: ADMIT Internal Medicine; ATTEND Internal Medicine
DX: D46.9 Myelodysplastic syndrome, unspecified (principal); D64.9 Anemia, unspecified; I12.9 Hypertensive chronic kidney disease with stage 1 through stage 4 chronic kidney disease, or unspecified chronic kidney disease; N18.9 Chronic kidney disease, unspecified; E11.21 Type 2 diabetes mellitus with diabetic nephropathy; E11.22 Type 2 diabetes mellitus with diabetic chronic kidney disease; C90.00 Multiple myeloma not having achieved remission; D72.825 Bandemia; E78.00 Pure hypercholesterolemia, unspecified; E87.70 Fluid overload, unspecified; N17.0 Acute kidney failure with tubular necrosis; N40.0 Benign prostatic hyperplasia without lower urinary tract symptoms
CPT/HCPCS: 36415; 36430; 71010; 80048; 80053; 80305; 81003; 82728; 83036; 83540; 83550; 83880; 84484; 85014; 85018; 85025; 85027; 85610; 86850; 86900; 86901; 86920; 93005; 96360; 96361; 96372; 99285; G0378; J0885; J7040; J7050; P9016; P9021; 86705; 86709; 86803; 87340

== ENCOUNTER 2017-10-21 10:21 | Observation (INO) | payer MEDICARE, OTHER ==
[~2017-10-21] VITALS: Ht 182.9 cm; Wt 74.4 kg
[2017-10-21 11:04] LABS: HEMATOCRIT. 21.5 % (42.0-52.0); MEAN CORPUSCULAR HEMOGLOBIN 29.2 pg (28.0-32.0); MEAN CORPUSCULAR VOLUME 89.1 fL (80.0-94.0); MEAN PLATELET VOLUME 6.6 fl (7.4-10.4); PLATELET 347 x1000/uL (130-400); RED BLOOD CELL COUNT 2.41 mill/uL (4.7-6.1); RED CELL DISTRIBUTION WIDTH 15.5 % (11.6-14.6)
[2017-10-21 11:12] LABS: INR 1.1; PROTHROMBIN TIME 11.6 sec (9.4-11.6)
[2017-10-21 11:22] LABS: CARBON DIOXIDE 22 mEq/L (21-32); CHLORIDE 111 mEq/L (98-107); TROPONIN I < 0.02 ng/mL (0.00-0.04)
[2017-10-21 11:28] LABS: PLATELET ESTIMATE NORMAL
[2017-10-21 15:38] LABS: CLARITY URINE CLEAR (CLEAR); COLOR URINE YELLOW (YELLOW); GLUCOSE URINE NEGATIVE (NEGATIVE); KETONES URINE NEGATIVE (NEGATIVE); LEUKOCYTE ESTERASE URINE NEGATIVE (NEGATIVE); NITRITE URINE NEGATIVE (NEGATIVE); OCCULT BLOOD URINE NEGATIVE (NEGATIVE); PROTEIN URINE TRACE (NEGATIVE); SPECIFIC GRAVITY URINE 1.017 (1.005-1.030); UROBILINOGEN URINE 0.2 E.U./dL (0.2-1.0)
[2017-10-21] MEDS ORDERED: LEVOFLOXACIN 500MG PREMIX 100 ML IV SCH (22:30)
[2017-10-21 22:36] LABS: HEMATOCRIT. 22.3 % (42.0-52.0); HEMOGLOBIN. 7.4 g/dL (14.0-18.0); MEAN CORPUSCULAR VOLUME 86.8 fL (80.0-94.0); MEAN PLATELET VOLUME 6.4 fl (7.4-10.4); PLATELET 295 x1000/uL (130-400); RED BLOOD CELL COUNT 2.56 mill/uL (4.7-6.1); RED CELL DISTRIBUTION WIDTH 15.9 % (11.6-14.6)
[2017-10-21] MEDS ORDERED: ACETAMINOPHEN 650MG/20.3ML UDC PO PRN (22:45)
[2017-10-21] MEDS ORDERED: VANCOMYCIN 1 G PREMIX 200 ML IV SCH (23:00)
[2017-10-21] MEDS: PANTOPRAZOLE 40MG DR TABLET PO SCH (23:00)
[2017-10-21 23:02] LABS: NUCLEATED RED BLOOD CELLS 1 /100 WBC
[2017-10-21 23:03] LABS: PLATELET ESTIMATE NORMAL
[2017-10-22] VITALS: BP 123/56
[2017-10-22] MEDS ORDERED: TEMAZEPAM 15MG CAPSULE PO PRN (00:08)
[2017-10-22] MEDS: LOSARTAN POTASSIUM 50 MG TABLET PO SCH ×2 (00:08→08:59)
[2017-10-22 01:00] VITALS: BP 123/56
[2017-10-22] MEDS ORDERED: LEVOFLOXACIN 500MG PREMIX 100 ML IV SCH (01:00)
[2017-10-22] MEDS ORDERED: HYDROCODONE/ACETAMINOPHEN 5/325MG TABLET PO PRN (01:15)
[2017-10-22] MEDS ORDERED: EPOETIN ALFA 10000UNITS/ML VIAL SUBCUT SCH (02:00)
[2017-10-22] MEDS ORDERED: VANCOMYCIN 1 G PREMIX 200 ML IV SCH (02:00)
[2017-10-22 02:19] LABS: HEMATOCRIT. 26.3 % (42.0-52.0); HEMOGLOBIN. 8.7 g/dL (14.0-18.0); MEAN CORPUSCULAR VOLUME 87.8 fL (80.0-94.0); MEAN PLATELET VOLUME 6.7 fl (7.4-10.4); PLATELET 308 x1000/uL (130-400); RED CELL DISTRIBUTION WIDTH 15.6 % (11.6-14.6)
[2017-10-22 04:00] VITALS: BP 100/63
[2017-10-22] MEDS: PANTOPRAZOLE 40MG DR TABLET PO SCH (06:27)
[2017-10-22 08:00] VITALS: BP 141/57
[2017-10-22] MEDS ORDERED: MEDICATION NOT ON FORMULARY EA (Multivitamin (Multi Vitamin Daily) 1 EACH) PO SCH (09:00)
[2017-10-22] MEDS ORDERED: ASPIRIN 81MG TABLET PO SCH (09:00)
[2017-10-22] MEDS ORDERED: FEBUXOSTAT 40 MG PO SCH (09:00)
[2017-10-22] MEDS ORDERED: FERROUS SULFATE 325MG TABLET PO SCH (09:00)
[2017-10-22] MEDS ORDERED: FOLIC ACID 1MG TABLET PO SCH (09:00)
[2017-10-22] MEDS ORDERED: MULTIVITAMINS,THER W-MINERALS TABLET PO SCH (09:00)
[2017-10-22 12:00] VITALS: BP 138/63
[2017-10-22 13:06] LABS: ATYPICAL LYMPHOCYTES 4
[2017-10-22 13:07] LABS: PLATELET ESTIMATE NORMAL
[2017-10-22] MEDS ORDERED: ATORVASTATIN CALCIUM 10MG TABLET PO SCH (21:00)
[2017-10-22] MEDS ORDERED: MEDICATION NOT ON FORMULARY EA (Simvastatin 10 MG) PO SCH (21:00)
[2017-10-22] MEDS ORDERED: LEVOFLOXACIN 250MG PREMIX 50 ML IV SCH (23:00)
== END 2017-10-22 13:30 | disposition home or self-care (01) ==
LOC: ER 11:44 → 8WST 13:50 → INTOOBSV 13:50 → EDBEDREQSVC 13:56 → EDBEDREQ 13:56 → ENRESERV 22:52
PROVIDERS: ADMIT Internal Medicine; ATTEND Internal Medicine
DX: D46.9 Myelodysplastic syndrome, unspecified (principal); I10 Essential (primary) hypertension; M10.9 Gout, unspecified; E78.00 Pure hypercholesterolemia, unspecified; Z90.5 Acquired absence of kidney
CPT/HCPCS: 36415; 71010; 80053; 81001; 83880; 84484; 85025; 85610; 86850; 86900; 86901; 86920; 96365; 96366; 96368; 96372; 99285; G0378; J0885; J1956; J3370; J7030; J7040; J7050; P9016

== ENCOUNTER 2020-01-22 07:41 | Inpatient (IN) | payer MEDICARE, OTHER ==
[~2020-01-22] VITALS: Ht 175.3 cm; Wt 73.5 kg
[~2020-01-22 07:41] MED LIST changes: +ALLO300T2 MT; +AMLO10TA80 MT; +ASPI-1497 MT; +DEFE360T MT; -LOSA100T14 PO; +LOSA100T32 MT; +LOSA100T32 PO; +RUXO10TA MT; -SIMV10TA6 PO; +SIMV10TA97 PO
[2020-01-22] MEDS ORDERED: SODIUM CHLORIDE 0.9% 1000ML BAG (SEPSIS BOLUS) IV ONE (08:15)
[2020-01-22 08:37] LABS: MEAN CORPUSCULAR HEMOGLOBIN 27.3 pg (28.0-32.0); MEAN CORPUSCULAR VOLUME 86.8 fL (80.0-94.0); MEAN PLATELET VOLUME 9.2 fl (7.4-10.4); PLATELET 60 x1000/uL (130-400); RED BLOOD CELL COUNT 1.05 mill/uL (4.7-6.1)
[2020-01-22 08:38] LABS: CHLORIDE 111 mEq/L (98-107)
[2020-01-22 08:39] LABS: INR 1.2; PROTHROMBIN TIME 13.2 sec (9.6-11.0)
[2020-01-22 08:51] LABS: HEMATOCRIT. 9.1 % (42.0-52.0); HEMOGLOBIN. 2.9 g/dL (14.0-18.0)
[2020-01-22] MEDS ORDERED: VANCOMYCIN 1 G PREMIX 200 ML IV ONE (09:00)
[2020-01-22] MEDS ORDERED: PIPERACILLIN/TAZ 3.375G PREMIX 50 ML IV ONE (09:00)
[2020-01-22 10:06] LABS: PLATELET ESTIMATE DECREASED
[2020-01-22 11:51] LABS: CLARITY URINE CLEAR (CLEAR); COLOR URINE YELLOW (YELLOW); KETONES URINE NEGATIVE (NEGATIVE); LEUKOCYTE ESTERASE URINE NEGATIVE (NEGATIVE); NITRITE URINE NEGATIVE (NEGATIVE); OCCULT BLOOD URINE TRACE (NEGATIVE); PH URINE 6.5 (4.5-8.0); PROTEIN URINE 1+ (NEGATIVE); SPECIFIC GRAVITY URINE 1.012 (1.005-1.030); UROBILINOGEN URINE 0.2 E.U./dL (0.2-1.0)
[2020-01-22] MEDS ORDERED: ACETAMINOPHEN 325MG TABLET PO PRN (12:00)
[2020-01-22] MEDS ORDERED: GUAIFENESIN 200MG/10ML SUGAR FREE UDC PO PRN (12:00)
[2020-01-22] MEDS ORDERED: ACETAMINOPHEN 650MG SUPP PR PRN ×2 (12:00)
[2020-01-22] MEDS ORDERED: MAGNESIUM/ALUMINUM HYDROXIDE/SIMETHICONE 30ML UDC PO PRN (12:00)
[2020-01-22] MEDS ORDERED: ONDANSETRON HCL 4MG/2ML INJ IV PRN (12:00)
[2020-01-22] MEDS ORDERED: LORAZEPAM 0.5MG TABLET PO PRN (12:00)
[2020-01-22] MEDS ORDERED: DOCUSATE SODIUM 100MG CAPSULE PO PRN (12:00)
[2020-01-22] MEDS ORDERED: PIPERACILLIN/TAZOBACTAM 2.25 G in DEXTROSE 5% WATER 50 ML IV SCH (12:00)
[2020-01-22] MEDS ORDERED: CLONIDINE 0.1MG TABLET PO PRN (12:00)
[2020-01-22] MEDS ORDERED: IPRATROPIUM/ALBUTEROL 0.5-3(2.5)MG/3ML NEB NEB PRN (12:00)
[2020-01-22] MEDS: DEXT 5%/0.45% NACL 1000ML 1,000 ML IV SCH ×2 (12:00→15:38)
[2020-01-22] MEDS ORDERED: ACETAMINOPHEN 650MG/20.3ML UDC GT PRN ×2 (12:00)
[2020-01-22] MEDS ORDERED: DIPHENHYDRAMINE 50MG/ML VIAL IV PRN (12:00)
[2020-01-22] MEDS ORDERED: POTASSIUM CHLORIDE INJ 40 MEQ in DEXT 5% WATER 500 ML IV NR (13:30)
[2020-01-22] MEDS: HYDROCODONE/ACETAMINOPHEN 5/325MG TABLET PO PRN (13:46)
[2020-01-22] MEDS ORDERED: PANTOPRAZOLE SODIUM 40 MG/VIAL IV SCH (17:00)
[2020-01-22 17:21] LABS: MEAN CORPUSCULAR HEMOGLOBIN 27.9 pg (28.0-32.0); MEAN CORPUSCULAR VOLUME 87.9 fL (80.0-94.0); MEAN PLATELET VOLUME 9.6 fl (7.4-10.4); PLATELET 72 x1000/uL (130-400); RED BLOOD CELL COUNT 1.85 mill/uL (4.7-6.1)
[2020-01-22 17:27] LABS: HEMATOCRIT. 16.3 % (42.0-52.0); HEMOGLOBIN. 5.2 g/dL (14.0-18.0)
[2020-01-22 17:29] LABS: INR 1.2
[2020-01-22 18:12] LABS: PLATELET ESTIMATE DECREASED
[2020-01-22 21:30] VITALS: BP 100/50
[2020-01-22 22:00] VITALS: BP 101/48
[2020-01-22] MEDS ORDERED: NOREPINEPHRINE 8 MG in DEXT 5% WATER 492 ML IV PRN ×5 (22:00→23:00)
[2020-01-22] MEDS: PANTOPRAZOLE SODIUM 40 MG/VIAL IV SCH (23:01)
[2020-01-22 23:36] VITALS: BP 101/48
[2020-01-22 23:50] LABS: CREATINE KINASE MB FRACTION 2.2 ng/mL (0.5-3.6)
[2020-01-22 23:52] VITALS: BP 94/45
[2020-01-23] VITALS (23 sets, daily range): BP systolic 99–118; BP diastolic 45–68
[2020-01-23] MEDS ORDERED: VANCOMYCIN 750 MG PREMIX 150 ML IV NR
[2020-01-23 00:37] LABS: HEMATOCRIT 18.8 % (42.0-52.0); HEMOGLOBIN 6.2 g/dL (14.0-18.0)
[2020-01-23] MEDS: HYDROCODONE/ACETAMINOPHEN 5/325MG TABLET PO PRN (01:12)
[2020-01-23] MEDS: PIPERACILLIN/TAZOBACTAM 2.25 G in DEXTROSE 5% WATER 50 ML IV SCH ×3 (01:14→20:34)
[2020-01-23 08:32] LABS: *AMPHETAMINES SCREEN URINE NEGATIVE (NEGATIVE); *BARBITURATES SCREEN URINE NEGATIVE (NEGATIVE); *BENZODIAZEPINES SCREEN URINE NEGATIVE (NEGATIVE); *COCAINE SCREEN URINE NEGATIVE (NEGATIVE); CANNABINOID URINE SCREEN NEGATIVE (NEGATIVE); METHADONE URINE SCREEN NEGATIVE (NEGATIVE); OPIATES URINE SCREEN NEGATIVE (NEGATIVE); PHENCYCLIDINE URINE SCREEN NEGATIVE (NEGATIVE)
[2020-01-23] MEDS: PANTOPRAZOLE SODIUM 40 MG/VIAL IV SCH ×2 (09:31→20:39)
[2020-01-23 13:26] LABS: HEMATOCRIT 24.7 % (42.0-52.0); HEMOGLOBIN 8.4 g/dL (14.0-18.0)
[2020-01-23 13:30] LABS: HEMATOCRIT. 24.8 % (42.0-52.0); HEMOGLOBIN. 8.4 g/dL (14.0-18.0); MEAN CORPUSCULAR HEMOGLOBIN 29.5 pg (28.0-32.0); MEAN CORPUSCULAR VOLUME 87.1 fL (80.0-94.0); MEAN PLATELET VOLUME 8.5 fl (7.4-10.4); PLATELET 61 x1000/uL (130-400); RED BLOOD CELL COUNT 2.85 mill/uL (4.7-6.1); RED CELL DISTRIBUTION WIDTH 15.3 % (11.6-14.6)
[2020-01-23 13:42] LABS: CHLORIDE 116 mEq/L (98-107)
[2020-01-23 13:50] LABS: LDL CHOLESTEROL 43 mg/dL (5-100)
[2020-01-23 13:53] LABS: HDL CHOLESTEROL 12 mg/dL (40-59); T4 FREE 1.11 ng/dL (0.76-1.46)
[2020-01-23 14:10] LABS: PLATELET ESTIMATE DECREASED
[2020-01-23] MEDS ORDERED: PANT40SU MT (14:36)
[2020-01-23] MEDS ORDERED: POTASSIUM CHLORIDE 20MEQ TABLET SR PO SCH (14:45)
[2020-01-23] MEDS: DEXT 5%/0.45% NACL 1000ML 1,000 ML IV SCH ×3 (14:58→20:39)
[2020-01-23 17:08] LABS: HEMATOCRIT 23.9 % (42.0-52.0); HEMOGLOBIN 8.1 g/dL (14.0-18.0)
[2020-01-23 17:22] LABS: HEMATOCRIT. 23.8 % (42.0-52.0); MEAN CORPUSCULAR VOLUME 86.1 fL (80.0-94.0); MEAN PLATELET VOLUME 8.9 fl (7.4-10.4); PLATELET 61 x1000/uL (130-400); RED BLOOD CELL COUNT 2.76 mill/uL (4.7-6.1); RED CELL DISTRIBUTION WIDTH 15.4 % (11.6-14.6)
[2020-01-23 18:19] LABS: ATYPICAL LYMPHOCYTES 1
[2020-01-23 18:20] LABS: PLATELET ESTIMATE MARKEDLY DECREASED
[2020-01-23 20:51] LABS: HEMATOCRIT 23.4 % (42.0-52.0); HEMOGLOBIN 7.9 g/dL (14.0-18.0)
[2020-01-24] VITALS (15 sets, daily range): BP systolic 104–132; BP diastolic 53–84
[2020-01-24 00:41] LABS: HEMOGLOBIN 7.8 g/dL (14.0-18.0)
[2020-01-24] MEDS: HYDROCODONE/ACETAMINOPHEN 5/325MG TABLET PO PRN (05:43)
[2020-01-24] MEDS: PANTOPRAZOLE SODIUM 40 MG/VIAL IV SCH ×2 (09:29→21:37)
[2020-01-24] MEDS: PIPERACILLIN/TAZOBACTAM 2.25 G in DEXTROSE 5% WATER 50 ML IV SCH ×2 (09:29→21:37)
[2020-01-24] MEDS ORDERED: POTASSIUM CHLORIDE 20MEQ TABLET SR PO NR (10:45)
[2020-01-24 12:22] LABS: HEMATOCRIT. 23.9 % (42.0-52.0); HEMOGLOBIN. 8.1 g/dL (14.0-18.0); MEAN CORPUSCULAR HEMOGLOBIN 29.5 pg (28.0-32.0); MEAN CORPUSCULAR VOLUME 86.9 fL (80.0-94.0); MEAN PLATELET VOLUME 9.7 fl (7.4-10.4); RED BLOOD CELL COUNT 2.75 mill/uL (4.7-6.1); RED CELL DISTRIBUTION WIDTH 16.1 % (11.6-14.6)
[2020-01-24] MEDS ORDERED: VANCOMYCIN 1 G PREMIX 200 ML IV SCH (12:30)
[2020-01-24 14:10] LABS: PLATELET 46 x1000/uL (130-400); PLATELET ESTIMATE MARKEDLY DECREASED
[2020-01-24 16:26] LABS: HEMATOCRIT 23.6 % (42.0-52.0); HEMOGLOBIN 7.8 g/dL (14.0-18.0)
[2020-01-25] VITALS: BP 105/49
[2020-01-25] MEDS: HYDROCODONE/ACETAMINOPHEN 5/325MG TABLET PO PRN (01:31)
[2020-01-25 02:00] VITALS: BP 109/48
[2020-01-25 04:00] VITALS: BP 114/57
[2020-01-25 05:44] LABS: INR 1.3; PROTHROMBIN TIME 13.5 sec (9.6-11.0)
[2020-01-25 05:55] LABS: HEMATOCRIT 22.7 % (42.0-52.0); HEMOGLOBIN 7.5 g/dL (14.0-18.0); MEAN CORPUSCULAR HEMOGLOBIN 29.1 pg (28.0-32.0); MEAN CORPUSCULAR VOLUME 87.4 fL (80.0-94.0); RED CELL DISTRIBUTION WIDTH 15.9 % (11.6-14.6)
[2020-01-25 06:00] VITALS: BP 117/54
[2020-01-25] MEDS: DEXT 5%/0.45% NACL 1000ML 1,000 ML IV SCH (06:11)
[2020-01-25 06:43] LABS: PLATELET 49 x1000/uL (130-400)
[2020-01-25 08:00] VITALS: BP 123/44
[2020-01-25] MEDS: PANTOPRAZOLE SODIUM 40 MG/VIAL IV SCH (08:20)
[2020-01-25] MEDS: PIPERACILLIN/TAZOBACTAM 2.25 G in DEXTROSE 5% WATER 50 ML IV SCH (08:21)
[2020-01-25 08:59] VITALS: BP 123/44
[2020-01-25] MEDS ORDERED: POTASSIUM CHLORIDE 20MEQ/PACKET PO NR (09:45)
[2020-01-25] MEDS ORDERED: VANCOMYCIN 1 G PREMIX 200 ML IV SCH (12:00)
== END 2020-01-25 10:00 | disposition home or self-care (01) | DRG 834 ==
LOC: ER 07:41 → 5EST 10:02 → EDBEDREQTM 10:26 → EDBEDREQ 10:26 → ENRESERV 20:20
PROVIDERS: ADMIT Internal Medicine; ATTEND Internal Medicine
PROC: 30233N1 Transfusion of Nonautologous Red Blood Cells into Peripheral Vein, Percutaneous Approach (ICD-10-PCS; principal; 2020-01-22)
PROC: 30233R1 Transfusion of Nonautologous Platelets into Peripheral Vein, Percutaneous Approach (ICD-10-PCS; 2020-01-22)
DX: C92.00 Acute myeloblastic leukemia, not having achieved remission (principal); K31.811 Angiodysplasia of stomach and duodenum with bleeding; A41.9 Sepsis, unspecified organism; E87.0 Hyperosmolality and hypernatremia; C94.6 Myelodysplastic disease, not elsewhere classified; N18.9 Chronic kidney disease, unspecified; E87.6 Hypokalemia; N40.0 Benign prostatic hyperplasia without lower urinary tract symptoms; D69.6 Thrombocytopenia, unspecified; R16.1 Splenomegaly, not elsewhere classified; Z90.5 Acquired absence of kidney; Z87.19 Personal history of other diseases of the digestive system; Z79.899 Other long term (current) drug therapy; Z87.01 Personal history of pneumonia (recurrent); Z92.21 Personal history of antineoplastic chemotherapy
CPT/HCPCS: 36415; 71045; 74176; 78278; 80048; 80053; 80061; 80202; 80305; 81003; 82550; 82553; 83605; 84145; 84439; 84443; 84484; 85014; 85018; 85025; 85027; 85044; 85384; 86850; 86900; 86920; 86945; 93005; 93306; 93970; 96365; 99291; A9560; C9113; J1200; J2543; J3370; J3480; J7030; J7060; P9016; P9034